=== PATIENT | female | born 1960 | race Asian ===

== ENCOUNTER 2020-06-26 10:29 | Outpatient (CLI) | payer BC, OTHER, SELFPAY | END 2020-06-26 10:30 | disposition home or self-care (01) | LOC: ANHCOVIDVC 10:29 | PROVIDERS: PCP Family Medicine | DX: Z23 Encounter for immunization (principal) | CPT/HCPCS: 0001A; 91300 ==

== ENCOUNTER 2020-07-17 10:28 | Outpatient (CLI) | payer BC, OTHER, SELFPAY | END 2020-07-17 10:29 | disposition home or self-care (01) | LOC: ANHCOVIDVC 10:28 | PROVIDERS: PCP Family Medicine | DX: Z23 Encounter for immunization (principal) | CPT/HCPCS: 0002A; 91300 ==

== ENCOUNTER 2024-11-15 12:53 | Outpatient (CLI) | payer MEDICARE, OTHER, BC, SELFPAY ==
--- NOTE | ~2024-11-15 | DEXA_ITS ---
Bone Density Report Name: KHADIJAH FLOWERS V Age: 64 Sex: Female Ethnicity: White Date of : 1960 Indication: postmenopausal; screening for osteoporosis; asthma or emphysema; Referring Provider: [facility] Study: Bone densitometry was performed. Exam Date: November 15, 2024 Accession number: [id number] Bone Density: Region BMD T-score Z-score Classification AP Spine(L1-L4) 1.158 1.0 2.8 Normal Femoral Neck (Left) 0.763 -0.8 0.7 Normal Total Hip (Left) 0.929 -0.1 1.1 Normal Femoral Neck (Right) 0.758 -0.8 0.7 Normal Total Hip (Right) 0.958 0.1 1.4 Normal Total Hip Mean 0.944 0.0 1.3 Normal World Health Organization criteria for BMD impression classify patients as: Normal (T-score at or above -1.0), Osteopenia (T-score between -1.0 and -2.5), or Osteoporosis (T-score at or below -2.5). 10-year Fracture Risk: FRAX not reported because: All T-scores for Spine Total, Hip Total, Femoral Neck at or above -1.0 Clinical Information Provided by Patient: Has the following medical conditions: Asthma or Emphysema Patient maximum height was 60.5 Menopause Age: 51 No regular weight bearing exercise Does not regularly consume dairy products Onset of menses at age 11 Number of children 2 Impression: The patient has normal bone mass. Discussion: BONE DENSITY IS ABOVE THE MINIMUM DESIRABLE LEVEL AT ALL SKELETAL SITES TESTED. This patient?s bone mineral density is above the minimum desirable level (T-score -1.0 or better) at all sites measured. The patient should follow a healthful lifestyle (good nutrition with adequate calcium and vitamin D, and appropriate weight-bearing exercise). Follow-Up: Consider repeating this study in 5 years or sooner if there is some new clinical indication. Reported by: GALDINO on 11/15/2024 1:38:00 PM. Reviewed, dictated and finalized at location A.
--- OUTSIDE RECORDS SUMMARY | 2024-11-15 13:02 | XMS_ITS | Clinical Summary ---
Author Organization [facility] Address [address] [place] [address] Care Team Providers Care Screw Remover Name Role Phone Karl Flores MD Primary Care Provider [phone] Source Comments [facility],non-owned Affiliates and Associated Physician Practices is amultiple site organization consisting of ambulatory clinics and hospital sitesin [place], [place], [place] and [place]. This disclosure is being madepursuant to the Care Everywhere program and may not contain all information available regarding this patient. Last updated 18.[facility] Allergies Active Allergy Reactions Criticality Noted Date Comments Ciprofloxacin Swelling Medium 07/13/2011 Hydrochlorothiazide W-Triamterene Unknown Dyazide Medications * Be aware that medications may not be up to date on this document. Alwaysverify current medications with the patient. SITagliptin (JANUVIA) 100 MG tablet 7 Active fluticasone propionate (FLONASE) 50 MCG/ACT nasal spray [place] 2 sprays into each nostril DAILY. 1 bottles 11 7 Active Additional Information Patient not taking.Reason: Patient adjusted, Reported on 10/09/2024 aspirin (ASPIRIN) 81 MG tablet Take 1 (one) tablet by mouth once daily Active albuterol HFA (PROVENTIL; VENTOLIN; PROAIR) 108 (90 Base) MCG/ACT inhaler Take 2 (two) puffs by mouth every 4 hours 2 Active betamethasone dipropionate augmented (Diprolene Af) 0.05 % cream Apply 1 Application to affected area as directed 3 Active cetirizine (ZyrTEC) 10 MG tablet Take 1 (one) tablet by mouth as needed Active clobetasol (Temovate) 0.05 % cream Apply 1 Dose to affected area as directed Active lisinopril (Prinivil; Zestril) 10 MG tablet Take 1 (one) tablet by mouth once daily Active meloxicam (Mobic) 15 MG tablet Take 1 (one) tablet by mouth as needed Active montelukast (Singulair) 10 MG tablet Take 1 (one) tablet by mouth once daily Active metFORMIN ER 24hr (Glucophage XR) 500 MG tablet Take 1 (one) tablet by mouth 2 times daily with morning and evening meal 4 Active atorvastatin (Lipitor) 10 MG tablet Take 1 (one) tablet by mouth at bedtime 4 Active fluticasone-salm eterol (Advair/Wixela) 250-50 MCG/ACT inhaler Inhale 1 (one) puff by mouth as needed 4 Active Farxiga 10 MG tablet Take 1 (one) tablet by mouth every morning Active Active Problems Problem Noted Date Diagnosed Date Asthma 12/12/2018 Carpal tunnel syndrome 12/12/2018 Eczema 12/12/2018 Essential hypertension 12/12/2018 Lumbar radiculopathy 12/12/2018 Osteoarthrosis 12/12/2018 Spinal stenosis in cervical region 12/12/2018 Triggering of digit 12/12/2018 Type 2 diabetes mellitus without complication Need for other prophylactic vaccination and inoculation against single diseases 09/28/2018 Immunization due 09/28/2018 Hyperlipidemia 03/24/2018 Chronic otitis externa of left ear 12/06/2017 Tympanosclerosis of left ear 07/29/2015 Pruritus 01/21/2015 Ear itching 01/21/2015 Seasonal allergies 12/25/2013 Sensorineural hearing loss of both ears 01/18/20 12 Resolved Problems Problem Noted Date Diagnosed Date Resolved Date Chronic otitis externa of left ear 08/02/2017 12/06/2017 Chronic otitis externa of left ear 07/29/2015 08/02/2017 Encounters Date Type Department Care Team Description 10/09/2024 12:45 PM CDT Office Visit [facility] - ENT [address] [place] [phone] Timothy Espinosa MD Sensorineural hearing loss (SNHL) of both ears (Primary Dx); Impacted cerumen of left ear; Myringitis; Chronic diffuse otitis externa of left ear; Mixed conductive and sensorineural hearing loss of left ear with restricted hearing of right ear; Otorrhea of left ear 10/09/2024 Travel from Last 3 Months Immunizations Immunization Administration Dates Next Due COVID PFIZER BIVALENT 12Y+ 30mcg/0.3ML 02/13/2022 Covid Moderna primary monova lent 12+ yr 0.5mL 07/17/2020 Covid Pfizer primary monoval ent 12+ yr 0.3mL Purple cap 03/21/2021,07/17/2020,06/26/2020 FLU VACCINE QUAD IIV4 SPLIT 0.25 ML IM 02/21/2018,02/12/2016,02/25/2015 FLU VACCINE TRI IIV3 SPLIT P F IM (FLUVIRIN) 01/24/2024,02/21/2014,03/02/2013 INFLUENZA VACCINE 01/17/2018 INFLUENZA VACCINE, QUADR. (F LUZONE; FLULAVAL; FLUARIX; AFLURIA QUADRIVALENT; 6MO+), 0.5 ML (IIV4) 03/18/2023,02/05/2022,02/19/2021,2019,02/20/2019,02/01/2017 PNEUMOCOCCAL PPSV23 06/16/2023 Pneumococcal Pcv13 Conj 10/26/2014 TDAP (7yrs+) 10/28/2015,01/08/2006 Zoster Hzv Vacc Recombinant Inj Im 11/30/2018, Social History Tobacco Use Types Packs/Day Years Used Date Smoking Tobacco: Never Smokeless Tobacco: Never Tobacco Cessation:Counseling Given: Not Answered Alcohol Use Standard Drinks/Week Comments No 0 (1 standard drink = 0.6 oz pur e alcohol) Comments No Sex and Gender Information Value Date Recorded Sex Assigned at Not on file Legal Sex Female 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 KEEPER Gender Identity Not on file Sexual Orientation Not on file Last Filed Vital Signs Vital Sign Reading Time Taken Comments Blood Pressure 109/59 10/09/2024 12:36 PM CDT Pulse 81 10/09/2024 12:36 PM CDT Temperature 27.8 C (82 F) 05/15/2021 1:00 PM BATHHOUSE KEEPER Respiratory Rate 13 07/29/2015 12:39 PM CDT Oxygen Saturation 97% 06/15/2019 12:43 PM BATHHOUSE KEEPER Inhaled Oxygen Concentration - - Weight 58.8 kg (129 lb 9.6 oz) 10/09/2024 12:36 PM CDT Height 152.4 cm (5') 10/09/2024 12:36 PM CDT Body Mass Index 25.31 10/09/2024 12:36 PM CDT Plan of Treatment Upcoming Encounters Date Type Department Care Team (Late st Contact Info) Description 02/05/2025 12:45 PM CDT Office Visit [facility] - ENT [address] [place] [phone] Timothy Espinosa MD [address] [place] [address] [place] [address] Health Maintenance Due Date Last Done Comments BONE DENSITY TESTING 1960 COLOGUARD (AGES 45-75) - COLON CA SCREENING 1960 COLON MONITORING 1960 COLONOSCOPY - COLON CA SCREENING 1959 CT COLONOGRAPHY - COLON CA SCREENING 1960 Colorectal Cancer Screening 1960 FIT - COLON CA SCREENING 1959 FLEX SIG - COLON CA SCREENING 1960 MAMMOGRAM 1960 HIV SCREENING 08/25/1974 HEPATITIS C SCREENING 08/21/1977 DIABETES-SERUM CREATININE 08/25/1977 PAP SMEAR 08/25/1980 DIABETES RETINOPATHY SCREENING 12/12/2018 DIABETES-FOOT EXAM WITH MONOFILAMENT 12/12/2018 DIABETES-HGB A1C 12/12/2018 Respiratory Syncytial Virus (RSV) Vaccine Pt: or over 60 yrs (1 - Risk 60-74 years 1-dose series) 2019 COVID-19 VACCINE ( - 2023- season) 2023 02/13/2022, 03/21/2021, 07/17/2020, Additional history exists DEPRESSION SCREENING 04/19/2024 DIABETES - URINE PROTEIN SCREENING 04/19/2024 INFLUENZA VACCINE (#1) 2024 4, 03/18/2023, 02/05/2022, Additional history exists DTAP/TDAP/TD VACCINES (3 - Td or Tdap) 10/27/2025 10/28/2015, 01/08/2006 PNEUMOCOCCAL VACCINE 50+ (3 of 3 - PCV20 or PCV21) 06/16/2028 06/16/2023, 10/26/2014 ZOSTER VACCINE Completed 11/30/2018, 09/28/2018 HEPATITIS B VACCINE Aged Out No longe r eligible based on patient's age to complete this topic HIB VACCINE Aged Out No longer eligi ble based on patient's age to complete this topic HPV VACCINE Aged Out No longer eligi ble based on patient's age to complete this topic MENINGOCOCCAL (Group B) VACCINE SHARED DECISION-MAKING Aged Out No longer eligible based on patient's age to complete this topic MENINGOCOCCAL GROUPS A/C/Y/W VACCINE Aged Out No longer eligible based on patient's age to complete this topic Procedures Procedure Name Priority Date/Time Associated Diagnosis Comments TX REMOVE CERUMEN IMPACTED W INSTR LEFT EAR Routine 10/09/2024 1:39 PM CDT Impacted cerumen of left ear from Last 3 Months Results * TX REMOVE CERUMEN IMPACTED W INSTR LEFT EAR (10/09/2024 1:39 PM CDT) Narrative Timothy Espinosa MD - 10/09/2024 1:39 PM CDT Timothy Espinosa MD 10/09/2024 1:39 PM Procedure: Binocular Microscopic Removal of Impacted Cerumen Indications: Cerumen impaction obscuring the tympanic membrane. Findings: See main note. Procedure Note: After verbal consent was obtained, the binocular operative microscope was brought into position. An otologic speculum was inserted into the cartilaginous external auditory canal. Cerumen was removed using a combination of cerumen loops, suction, and alligator forceps. There was no bleeding Timothy Espinosa MD Timothy Espinoas MD PROCEDURE/MINOR SURGICAL OR DERABLES Final Result from Last 3 Months Insurance Member Subscriber Plan / Payer (Ef fective 2017-Present) Name:Kristie Matthewleobardo Jesse Relation to Subscriber:Spouse Name:KRISTIENAVA Hannah Date of :1960 Address: [address] [place] [id number] Payer ID:[id number] (NAIC) Group ID:[id number] Type:/ Address: [facility] [place] [phone] Member Subscriber Plan / Payer (Ef fective 2017-Present) Name:KristieFrederick V Relation to Subscriber:Spouse Name:NAVA FLOWERS Date of :1961 Address: [address] [place] [address] Payer ID:[id number] (NAIC) Group ID:[id number] Type:/ Address: [facility] [place] [phone] ANTHEM Care Teams Screw Remover Relationship Specialty Start Date End Date Karl Flores MD [address] [place] [phone] PCP - General Family Medicine 07/03/24
--- OUTSIDE RECORDS SUMMARY | 2024-11-15 13:02 | XMS_ITS | Clinical Summary ---
Author Organization [facility] Address [facility] [place] [address] Care Team Providers Care Principal Strategist Name Role Phone Unavailable Primary Care Provider Unavailabl e Social History Tobacco Use Types Packs/Day Years Used Date Smoking Tobacco: Never Assessed Comments Unknown Sex and Gender Information Value Date Recorded Sex Assigned at Not on file Legal Sex Female 6:09 PM CDT Gender Identity Not on file Sexual Orientation Not on file Plan of Treatment Health Maintenance Due Date Last Done Comments Colorectal Cancer Screening Colonoscopy (10 Years) 1960 Hepatitis C 08/25/1977 DTaP, Tdap and Td Vaccines ( 1 - Tdap) 08/25/1978 Mammogram Screening 1999 Pneumococcal Vaccine: 50+ Ye ars (1 of 1 - PCV) 08/25/2009 Zoster Vaccines (1 of 2) 08/25/2009 COVID-19 Vaccine ( - 2023-2 5 season) 2023 Dexa Scan (General) 08/25/2024 RSV Immunization or 60+ Years (1 - 1-dose 75+ series) 08/25/2034 Meningococcal B Vaccine Aged Out No l onger eligible based on patient's age to complete this topic Meningococcal Vaccine Aged Out No epifanio sue eligible based on patient's age to complete this topic RSV Immunizations Under 20 Months Aged Out No longer eligible based on patient's age to complete this topic
== END 2024-11-15 12:54 | disposition home or self-care (01) ==
LOC: ANHIMG 12:57
PROVIDERS: PCP Family Medicine; Visit Provider Family Medicine
DX: Z78.0 Asymptomatic menopausal state (principal)
CPT/HCPCS: 77080